=== PATIENT | female | born 1985 | race Two or more races ===

== ENCOUNTER 2022-12-02 16:45 | Inpatient (IN) | payer OTHER ==
[~2022-12-02] VITALS: Ht 172.7 cm; Wt 98.5 kg
[2022-12-02] MEDS ORDERED: ACETAMINOPHEN 500 MG TAB PO ONE (17:30)
[2022-12-02] MEDS ORDERED: SODIUM CHLORIDE 0.9% 1,000 ML IV ONE (17:30)
[2022-12-02 18:42] LABS: Basophils # (auto) 0 10 ^3/uL (0-0.2); Basophils % (auto) 0.3 % (0.0-2.0); Eosinophils # (auto) 0.1 10 ^3/uL (0-0.8); Hemoglobin 8.6 g/dL (12.2-16.2); Lymphocytes # (auto) 0.7 10 ^3/uL (0.4-5.4); Monocytes # (auto) 1.1 10 ^3/uL (0-1.3)
[2022-12-02 18:45] LABS: Eosinophils % (auto) 0.7 % (0.0-7.0); Hematocrit 26.5 % (36.0-46.0); Lymphocytes % (auto) 5.6 % (10.0-50.0); Mean Corpuscular Hemoglobin 25.7 pg (28.0-32.0); Mean Corpuscular Hgb Conc. 32.5 g/dL (32.0-36.0); Mean Corpuscular Volume 79.3 fL (80.0-100.0); Monocytes % (auto) 8.1 % (0.0-12.0); Neutrophils # (auto) 11.3 10 ^3/uL (1.6-8.6); Neutrophils % (auto) 85.3 % (37.0-80.0); Red Blood Cells 3.34 10^6/uL (4.0-5.20); Red Cell Distribution Width 15.7 % (11.8-14.3); White Blood Cell 13.3 10^3/uL (4.4-10.8)
[2022-12-02 18:47] LABS: Albumin 2.6 g/dL (3.4-5.0); Calcium 8.1 mg/dL (8.5-10.1); Potassium 3.4 mmol/L (3.5-5.1)
[2022-12-02 18:50] LABS: BUN/Creatinine Ratio 21.7 (10.0-20.0); Bilirubin, Total 0.5 mg/dL (0.2-1.0); Total Protein 6.9 g/dL (6.4-8.2)
[2022-12-02 19:25] LABS: Urine Bacteria NONE SEEN /hpf (None Seen); Urine Blood 3+ /uL (Negative); Urine Specific Gravity 1.016 (1.001-1.035); Urine WBC 584 /hpf (0 - 5)
[2022-12-02] MEDS ORDERED: IOHEXOL 300 MG/ML 100ML BOTTLE IJ ONE (19:37)
[2022-12-02] MEDS ORDERED: cefTRIAXone 1GM/50ML D5W 50 ML IV ONE (21:30)
[2022-12-02] MEDS ORDERED: ACETAMINOPHEN 325 MG TAB PO ONE (21:45)
[2022-12-03] MEDS ORDERED: ONDANSETRON HCL 4 MG/2 ML VIAL IV ONE
[2022-12-03] MEDS ORDERED: IOHEXOL 350 MG/ML 100ML IJ ONE (00:11)
[2022-12-03] MEDS ORDERED: LORazepam 2MG/ML-1ML VIAL IV ONE (01:45)
[2022-12-03] MEDS ORDERED: IBUPROFEN 800 MG TAB PO ONE (01:45)
[2022-12-03] MEDS ORDERED: SODIUM CHLORIDE 0.9% 1,000 ML IV ONE ×2 (02:00→03:00)
[2022-12-03] MEDS ORDERED: HYDROmorphone HCL 2 MG/ML VL/or syr IV ONE ×3 (02:30→22:30)
[2022-12-03 03:23] LABS: Salicylate < 1.7 mg/dL (2.8-20.0)
[2022-12-03 03:34] LABS: Acetaminophen 6.9 ug/mL (10-30)
[2022-12-03] MEDS ORDERED: TEMAZEPAM 15 MG CAP PO PRN (04:30)
[2022-12-03] MEDS ORDERED: MORPHINE SULFATE INJ 2 MG/ml SYRG IV PRN (04:30)
[2022-12-03] MEDS ORDERED: ONDANSETRON HCL 4 MG/2 ML VIAL IV PRN (04:30)
[2022-12-03] MEDS ORDERED: NITROGLYCERIN 0.4 MG SL TAB SL PRN (04:30)
[2022-12-03] MEDS ORDERED: SODIUM CHLORIDE 0.9% 500 ML IV ONE (04:45)
[2022-12-03] MEDS: SODIUM CHLORIDE 0.9% 1,000 ML IV SCH ×3 (06:03→23:23)
[2022-12-03] MEDS: ACETAMINOPHEN 325 MG TAB PO PRN ×3 (08:02→21:08)
[2022-12-03] MEDS: cefTRIAXone 1GM/50ML D5W 50 ML IV SCH (09:28)
[2022-12-03] MEDS: PANTOPRAZOLE 40 MG TAB PO SCH (11:40)
[2022-12-03] MEDS: HYDROcodone-ACET 5/325MG TAB PO PRN (11:59)
[2022-12-03] MEDS: MORPHINE SULFATE INJ 2 MG/ml SYRG IV PRN (17:56)
[2022-12-04] MEDS: HYDROcodone-ACET 5/325MG TAB PO PRN ×2 (01:13→08:36)
[2022-12-04 05:00] VITALS: BP 121/61
[2022-12-04] MEDS: MORPHINE SULFATE INJ 2 MG/ml SYRG IV PRN (05:50)
[2022-12-04 06:54] LABS: Basophils # (auto) 0 10 ^3/uL (0-0.2); Basophils % (auto) 0.3 % (0.0-2.0); Eosinophils # (auto) 0.1 10 ^3/uL (0-0.8); Lymphocytes # (auto) 1.1 10 ^3/uL (0.4-5.4); Monocytes # (auto) 1.2 10 ^3/uL (0-1.3)
[2022-12-04 06:58] LABS: Eosinophils % (auto) 0.8 % (0.0-7.0); Lymphocytes % (auto) 12.8 % (10.0-50.0); Mean Corpuscular Hemoglobin 26.2 pg (28.0-32.0); Mean Corpuscular Hgb Conc. 33.3 g/dL (32.0-36.0); Mean Corpuscular Volume 78.6 fL (80.0-100.0); Monocytes % (auto) 13.9 % (0.0-12.0); Neutrophils # (auto) 6.3 10 ^3/uL (1.6-8.6); Neutrophils % (auto) 72.2 % (37.0-80.0); Nucleated Red Blood Cells % 0.1 %; Red Blood Cells 3.43 10^6/uL (4.0-5.20); Red Cell Distribution Width 16.2 % (11.8-14.3); White Blood Cell 8.8 10^3/uL (4.4-10.8)
[2022-12-04 07:03] LABS: Calcium 7.8 mg/dL (8.5-10.1); Potassium 3.4 mmol/L (3.5-5.1)
[2022-12-04 07:06] LABS: BUN/Creatinine Ratio 13.7 (10.0-20.0)
[2022-12-04 07:09] LABS: Bilirubin, Total 0.3 mg/dL (0.2-1.0)
[2022-12-04 08:38] VITALS: BP 153/89
[2022-12-04] MEDS: cefTRIAXone 1GM/50ML D5W 50 ML IV SCH (09:04)
[2022-12-04] MEDS: PANTOPRAZOLE 40 MG TAB PO SCH (10:09)
[2022-12-04] MEDS ORDERED: DOCUSATE SOD 100 MG CAP PO PRN (10:15)
[2022-12-04] MEDS ORDERED: DOCUSATE SOD 100 MG CAP PO ONE (10:15)
[2022-12-04] MEDS ORDERED: POTASSIUM CHL 20 Meq TABLET PO ONE (10:15)
[2022-12-04] MEDS ORDERED: KETOROLAC TROMETH 30 MG/ML 1ML VIAL IV ONE (10:15)
[2022-12-04] MEDS ORDERED: cefTRIAXone 1GM/50ML D5W 50 ML IV ONE (10:15)
[2022-12-04] MEDS: SODIUM CHLORIDE 0.9% 1,000 ML IV SCH ×2 (10:30→20:30)
[2022-12-04] MEDS: KETOROLAC TROMETH 30 MG/ML 1ML VIAL IV PRN ×2 (16:15→23:30)
[2022-12-04 17:00] VITALS: BP 137/77
[2022-12-04] MEDS: ACETAMINOPHEN 325 MG TAB PO PRN (20:10)
[2022-12-04 22:00] VITALS: BP 147/78
[2022-12-05 05:00] VITALS: BP 133/78
[2022-12-05 05:10] LABS: Basophils # (auto) 0 10 ^3/uL (0-0.2); Basophils % (auto) 0.6 % (0.0-2.0); Lymphocytes # (auto) 1.2 10 ^3/uL (0.4-5.4); Monocytes % (auto) 17.2 % (0.0-12.0); Nucleated Red Blood Cells % 0.1 %; Red Cell Distribution Width 15.9 % (11.8-14.3); White Blood Cell 5.6 10^3/uL (4.4-10.8)
[2022-12-05 05:14] LABS: Eosinophils # (auto) 0.1 10 ^3/uL (0-0.8); Eosinophils % (auto) 2.3 % (0.0-7.0); Hematocrit 27.3 % (36.0-46.0); Lymphocytes % (auto) 21.2 % (10.0-50.0); Mean Corpuscular Hemoglobin 25.6 pg (28.0-32.0); Mean Corpuscular Hgb Conc. 32.9 g/dL (32.0-36.0); Mean Corpuscular Volume 77.7 fL (80.0-100.0); Neutrophils # (auto) 3.3 10 ^3/uL (1.6-8.6); Neutrophils % (auto) 58.7 % (37.0-80.0); Red Blood Cells 3.51 10^6/uL (4.0-5.20)
[2022-12-05 05:51] LABS: Potassium 3.4 mmol/L (3.5-5.1)
[2022-12-05 05:55] LABS: BUN/Creatinine Ratio 15.7 (10.0-20.0); Calcium 7.9 mg/dL (8.5-10.1)
[2022-12-05] MEDS: SODIUM CHLORIDE 0.9% 1,000 ML IV SCH ×3 (06:30→20:48)
[2022-12-05] MEDS: ACETAMINOPHEN 325 MG TAB PO PRN (06:41)
[2022-12-05 09:00] VITALS: BP 122/72
[2022-12-05] MEDS ORDERED: FERROUS SULFATE 325mg EC TAB PO ONE (09:45)
[2022-12-05] MEDS: PANTOPRAZOLE 40 MG TAB PO SCH (09:45)
[2022-12-05] MEDS ORDERED: POTASSIUM CHL 20 Meq TABLET PO ONE (09:45)
[2022-12-05] MEDS ORDERED: CEFTRIAXONE SODIUM 2 GM in D5W 5% 100 ML IV SCH (10:00)
[2022-12-05] MEDS: KETOROLAC TROMETH 30 MG/ML 1ML VIAL IV PRN ×2 (11:21→21:02)
[2022-12-05 13:19] VITALS: BP 135/89
[2022-12-05 17:14] VITALS: BP 134/86
[2022-12-05] MEDS ORDERED: FERROUS SULFATE 325mg EC TAB PO SCH (18:00)
[2022-12-05 22:00] VITALS: BP 151/83
[2022-12-05 23:04] VITALS: BP 151/83
[2022-12-06] MEDS: ACETAMINOPHEN 325 MG TAB PO PRN (00:25)
== END 2022-12-06 01:46 | disposition short-term general hospital (02) | DRG 776 ==
LOC: ER 16:45 → EDBD 16:45 → TELE 12-03 04:28 → TELE-CENTR 12-03 21:45 → CENTRAL 12-04 17:06
PROVIDERS: ADMIT Nurse Practitioner; ATTEND Internal Medicine
DX: O85 Puerperal sepsis (principal); N13.6 Pyonephrosis; Z20.822 Contact with and (suspected) exposure to COVID-19; D64.9 Anemia, unspecified; E66.9 Obesity, unspecified; E87.6 Hypokalemia; M54.2 Cervicalgia
CPT/HCPCS: 36415; 36600; 71045; 74177; 80048; 80053; 80329; 81001; 82805; 83605; 84443; 85025; 87040; 87086; 87088; 87186; 87426; 93005; 96365; 96375; G0378; J0696; J1885; J2405; J7060